=== PATIENT | male | born 1950 | race Caucasian/White ===

== ENCOUNTER 2016-10-14 07:19 | Day surgery (SDC) | payer OTHER ==
[~2016-10-14] VITALS: Ht 165.1 cm; Wt 62.0 kg
[2016-10-14 07:55] VITALS: BP 150/103; PULSE 72; RESP 18; TEMP 98.1; O2SAT 96
[2016-10-14] MEDS ORDERED: ASPI81TA5 PO (07:59)
[2016-10-14] MEDS ORDERED: VITA100036 PO (07:59)
[2016-10-14] MEDS ORDERED: LOSA25TA PO (07:59)
[2016-10-14] MEDS ORDERED: NS 1000P @30 MLS/HR (KVO) IV SCH (08:00)
[2016-10-14 08:13] LABS: AUTOMATED NEUTROPHIL # 5.7 TH/MM3 (1.8-7.7); BASOPHIL # 0.1 TH/MM3 (0-0.2); BASOPHIL % 0.6 % (0.0-2.0); EOSINOPHIL # 0.1 TH/MM3 (0-0.4); EOSINOPHIL % 1.5 % (0.0-4.0); HEMATOCRIT 47.1 % (39.0-51.0); HEMO FLAGS DIFF FINAL; LYMPH % 27.7 % (9.0-44.0); LYMPHOCYTE # 2.5 TH/MM3 (1.0-4.8); MEAN CELL VOLUME 92.8 FL (80.0-100.0); MEAN CORPUSCULAR HGB CONC 34.5 % (32.0-36.0); MONO % 7.2 % (0.0-8.0); PLATELET COUNT 347 TH/MM3 (150-450); RED BLOOD COUNT 5.08 MIL/MM3 (4.50-5.90); RED CELL DISTRIBUTION WIDTH 13.1 % (11.6-17.2)
[2016-10-14 08:25] LABS: APTT (PATIENT) 27.1 SEC (24.3-30.1); INTERNATIONAL NORMALIZED RATIO 0.9 RATIO; PROTHROMBIN TIME - PATIENT 10.4 SEC (9.8-11.6)
[2016-10-14 08:32] LABS: BICARBONATE 26.4 MEQ/L (21.0-32.0)
[2016-10-14] MEDS ORDERED: HEPARIN-NS/PF INJ 500 ML ONE (09:33)
[2016-10-14] MEDS ORDERED: IOHEXOL 350 MG/ML 100 ML BTL (for Cath Lab) OTHER ONE (09:33)
[2016-10-14] MEDS ORDERED: VERAPAMIL HCL 5 MG/2 ML VIAL ONE (09:38)
[2016-10-14] MEDS ORDERED: HEPARIN SODIUM - IV 10,000 UNITS/10 ML VIAL ONE (09:38)
[2016-10-14] MEDS ORDERED: MIDAZOLAM HCL 2 MG/2 ML VIAL ONE (09:38)
[2016-10-14] MEDS ORDERED: CLOPIDOGREL 300 MG TAB ONE (10:43)
--- NOTE | 2016-10-14 10:54 | CATHPROC ---
Urban[facility]do HIS Report Study Information Study Number Admission Scheduled Start Study Start [id number] Oct 14 2016 7:19AM 10/14/2016 Oct 14 2016 9:33AM [facility] Service Cardiac Catheterization Admit Source Facility Department Other [facility] - Executive Creative Director Physician and Clinical Staff Initial Mega Reza Brand Mgr Clif HERNANDEZ, Devan Other cathlab, cathlab Recorder Johnny Fu RCIS(BS) Scrub Collin Figueroa,RT(R) Procedures Performed Procedure Location (Site) Vessel Name Coronary Angiograms LCA Left Coronary Coronary Angiograms RCA Right Coronary Drug Eluting Inflatio RCA Mid Right Coronary L Heart Cath LV Gram-hand inj. LV LV Ventricle PTCA RCA Mid Right Coronary PTCA ADD ON'S Wire insertion Radial (right) Radial Art. Equipment Time Auto Garage Mechanic Description Size Mfg Part Number Used/Scraped WIRE, WHISPER W/HYDROCOAT [id number] 10:30 D[employer] 190CM Used 190CM *[id number] TRANSDUCER, TRUWAVE [id number] 09:34 SERRANO HARDEN * Used W/STOCKCOCK *[id number] 10:37 [employer] STENT, SYNERGY 2.5 X 20MM Used *[id number] TIG 4.0 GUIDE CATHETER [id number] 10:29 [employer] FR 6 Used CONVEY *[id number] *[id number] 09:34 [employer] PACK, CCL CUSTOM * Used *[id number] 09:34 [employer] SUPPORT, ARTERIAL ADULT [id number] Used [id number] 09:34 Sazze PACER PEN, SKIN DUAL W/ RULER * Used *[id number] 10:34 MEDTRONIC BALLOON, 2.5 X 15MM EUPHORA 15MM Used *[id number] 10:30 EverCloud 30 TAHMINA INDEFLATOR Used *[id number] BAND, RADIAL COMPRESSION TR [id number] 10:43 EverCloud 24CM Used SHORT 24 *[id number] 09:34 [employer]Cloud WIRE, EXCHANGE 260CM 3MMJ 260CM Used *[id number] 09:34 NAMIC MANIFOLD, 4 PORT * Used *[id number] 09:34 NAMIC TUBING, HIGH PRESSURE 20" 20" Used *[id number] 09:34 NYCOMED OMNIPAQUE, 350 MG, 150ML 150ML [id number] Used [id number] 09:34 [facility] BLANKET,WARM AIR CCL * Used *[id number] CATHETER, FR5 OPTITORQUE [id number] 09:50 [employer] FR 5 Used RADIAL TIG 4.0 *[id number] SHEATH, FR6 TRANSRADIAL 09:34 [employer] FR 6 RM*[id number] Used SLENDER 10CM Equipment Model, Serial, Lot Number and Expiration Data Description Model Number Serial Number Lot Number Expiration Date STENT, LOBITO [id number] 05-23-2017 History: Current Medications Medication Dosage/Unit Route Frequency Last Date/Time Taken ASA History: Allergies Allergy Reaction No Known Allergies History: Risk Factors Family History of Hypertension Dyslipidemia Previous AK Premature CAD Yes No Yes No Prior Valve Prior PCI Prior CABG Surgery No No No Cerebrovascular Peripheral Artery Chronic Lung On Dialysis Diabetes Disease Disease Disease No No No No No History: Symptoms/Diagnosis Selection Items Chest pain History: Stress Tests Stress or Imaging Studies Performed Yes Standard Exercise Stress Test No Stress Echo No Stress Test SPECT Stress Test SPECT Result Stress Test SPECT Ischemia Risk/Extent Yes Positive High Stress Test CMR No Cardiac CTA Coronary Calcium Score No No History: Other Disease Selection Items HTN History: Other Current Smoker Packs a Day Years Used Pack Years Yes 1 40 40 Labs Hgb (g/dl) Hct (%) WBC (l/cumm) Platelets (thousands) 12.00-18.00 37.00-55.00 4.80-10.80 140.00-450.00 16.3 47.1 9 347 Glucose (mg/dl) BUN (mg/dl) Creatinine (mg/dl) BUN:Creatinine (1:x) 60.00-110.00 8.00-20.00 0.10-9.00 10.00-20.00 97 12 0.8 15 Na (meq/l) K (meq/l) 138.00-146.00 3.80-5.10 135 4 INR (PTT:PT) 0.50-2.00 0.9 CPK-MB (ng/ML) 0.00-7.00 Not Drawn Medication Medication Total Dose (Bolus/Oral) Medication Total Dosage/Unit 1% XYLOCAINE 5 mL HEPARIN 1500 units NTG (IC) 100 mcg PLAVIX 600 mg RADIAL COCKTAIL 5 mL (Bolus) VERSED 2 mg Medications (Bolus/Oral) Medication Time Given Dosage/Unit Administered By Reason VERSED 10/14/2016 10:15:53 AM 2 mg Devan Menezes RN 2 mg VERSED given in lab by Devan Menezes RN in Left Antecubital via Peripheral IV. Ordered by Mega Wharton. 1% XYLOCAINE 10/14/2016 10:16:52 AM 5 mL Mega Wharton 5 mL 1% XYLOCAINE given in lab by Mega Wharton in Right Radial via Subcutaneous. Ntg 300mcg Verapamil 2.5mg Heparin RADIAL COCKTAIL 10/14/2016 10:20:35 AM 5 mL (Bolus) WhartonPrimoher 2500U 5 mL (Bolus) RADIAL COCKTAIL given in lab by Mega Wharton in Right Radial via Radial. Using [Solutio n Name]. Reason: Ntg 300mcg Verapamil 2.5mg Heparin 2500U. NTG (IC) 10/14/2016 10:24:32 AM 100 mcg Mega Wharton 100 mcg NTG (IC) given in lab by Mega Wharton via Intra-coronary. HEPARIN 10/14/2016 10:28:58 AM 1500 units Devan Menezes RN 1500 units HEPARIN given in lab by Devan Menezes RN in Left Antecubital via Peripheral IV. Ordered by Mega Wharton. PLAVIX 10/14/2016 10:49:11 AM 600 mg Devan Menezes RN 600 mg PLAVIX given in lab by Devan Menezes RN via Oral. Ordered by Mega Wharton. Medication (Drip) Medication Time Given Dosage/Unit Concentration/Unit Diluent (ml) Solutio n IV Solutions 10/14/2016 9:33:45 AM 0 mL (IV) 500 NaCl .9 Patient arrived on IV Solutions given by cathlab, cathmarcelo in Left Antecubital via Peripheral IV. Pump /Drip Flow = 20 ml/hr using NaCl .9. Ordered by Mega Wharton. Initial Case Assessment Cardiovascular HR Rhythm NIBP Chest Pain 69 sinus 174/92 0 Edema Present Skin color Skin None Normal Warm Dry Circulatory - Right Pulses Dorsalis Pedis Femoral Radial 2 2 2 Scale (0,1,2,3,4,d) Scale (0,1,2,3,4,d) Neurological State Oriented to time-place- Alert Moves all extremities person Respiration - General Respiration Rate SpO2 (%) (B/min) 16 98 Final Case Assessment Cardiovascular HR Rhythm NIBP Chest Pain 68 sinus 150/76 0 Edema Present Skin color Skin None Normal Warm Dry Circulatory - Right Pulses Dorsalis Pedis Femoral Radial 2 2 2 Scale (0,1,2,3,4,d) Scale (0,1,2,3,4,d) Neurological State Oriented to time-place- Alert Moves all extremities person Respiration - General Respiration Rate SpO2 (%) (B/min) 16 98 Chronological Log Time Study Chronological Log 9:33:33 Patient arrived via Bed. 9:33:34 Patient Name, D.O.B, / Armband Verified By R.N. 9:33:34 Consent signed by the physician and the patient and verified by the Executive Creative Director staff. 9:33:35 Pre-op and post- op instructions given; patient acknowledges understanding of instructions. 9:33:36 Verbal Stimulation=2 Physical Stimulation=2 Airway=2 Respiration=2 TOTAL=8. (0=absent, 1=deutsch ited, 2=present) 9:33:36 Presedation assessment performed by Executive Creative Director RN. 9:33:37 Allens test performed on the right radial and ulnar artery. Positive. 9:33:38 Patient has been NPO for More than 6Hrs. 9:33:40 Skin Breakdown- none per patient 9:33:41 Patient Warmer Placed on the Table. 9:33:42 April Prominences Protected 9:33:44 A # 20 IV was noted in the Antecubital (left). Grade = 0 Patient arrived on IV Solutions given by cathlab, cathlab in Left Antecubital via Peripheral IV . Pump/Drip Flow = 20 9:33:45 ml/hr using NaCl .9. Ordered by Mega Wharton. 9:33:46 History and physical on the chart or being dictated. Vitals capture started with the following parameters, Patient=Adult, Interval=5 min, Initial Pr rbbfsx=310 mmHg, 9:35:24 Deflation Rate=5 mmHg 9:35:58 HR=67 bpm, PVHW=173/95 mmhg, SpO2=98.0 %, Resp=19 B/min, Pain=0, Ana=10, Crump=2 9:41:01 HR=70 bpm, XWKY=884/92 mmhg, SpO2=97.0 %, Resp=16 B/min, Pain=0, Ana=10, Crump=2 Assessment: Initial Case, HR=69 BPM, Rhythm=sinus, NQAB=934/92 mmhg, Chest Pain=0, Edema=None, Color=Normal, Skin = Warm, Dry 9:41:23 Right Pulses: Deric Ped=2, Femoral=2, Radial=2 Neurological: State=Alert, Ox3, JAY Respiration: Resp=16 B/min, SpO2=98 % 9:41:30 Reference ECG taken 9:42:48 Right Radial and groin(s) prepped with 2% chlorhexidine, and with a 3 min. waiting time. 9:45:17 MD paged 9:45:56 Pressure channel 1 zeroed. 9:46:07 HR=68 bpm, IXMQ=401/82 mmhg, SpO2=98.0 %, Resp=18 B/min, Pain=0, Ana=10, Crump=2 9:50:59 HR=67 bpm, KYJS=810/92 mmhg, SpO2=96.0 %, Resp=18 B/min, Pain=0, Ana=10, Crump=2 9:56:01 HR=66 bpm, RYLC=383/78 mmhg, SpO2=95.0 %, Resp=15 B/min, Pain=0, Ana=10, Crump=2 10:01:41 HR=65 bpm, NIUG=369/94 mmhg, SpO2=97.0 %, Resp=18 B/min, Pain=0, Ana=10, Crump=2 10:05:59 HR=68 bpm, KZCT=271/93 mmhg, SpO2=97.0 %, Resp=14 B/min, Pain=0, Ana=10, Crump=2 10:11:04 HR=68 bpm, ZCOD=738/84 mmhg, SpO2=96.0 %, Resp=17 B/min, Pain=0, Ana=10, Crump=2 10:13:49 MD arrived. 10:14:30 Contrast Scanned 10:14:30 Immediate Presedation assesment performed by physician. 10:15:53 2 mg VERSED given in lab by Devan Menezes RN in Left Antecubital via Peripheral IV. Ordered by Mega Wharton. 10:16:03 HR=66 bpm, CVOU=460/90 mmhg, SpO2=97.0 %, Resp=16 B/min, Pain=0, Ana=10, Crump=2 Time Out. Correct patient, correct procedure,correct physician, ,power injector not loaded with contrast with surgical 10:16:22 team present. Time Out Concurred by MD, individual staff in procedure 10:16:40 Case Start 10:16:41 Verbal Stimulation=2 Physical Stimulation=2 Airway=2 Respiration=2 TOTAL=8. (0=absent, 1=li mited, 2=present) 10:16:52 5 mL 1% XYLOCAINE given in lab by Mega Wharton in Right Radial via Subcutaneous. 10:20:15 Access site was Right Radial Artery. A SHEATH, FR6 TRANSRADIAL SLENDER 10CM FR 6 was advanced into the Radial (right) using the Perc utaneous 10:20:23 technique. 5 mL (Bolus) RADIAL COCKTAIL given in lab by Mega Wharton in Right Radial via Radial. Using [S olution Name]. Reason: 10:20:35 Ntg 300mcg Verapamil 2.5mg Heparin 2500U. A CATHETER, FR5 OPTITORQUE RADIAL TIG 4.0 FR 5 was advanced over a wire. OMNIPAQUE, 350 MG, 150 ML 150ML 10:20:42 was used for injections. 10:21:06 HR=78 bpm, LFEM=709/75 mmhg, SpO2=93.0 %, Resp=13 B/min, Pain=0, Ana=10, Crump=2 10:22:22 The LCA was injected and visualized at various angles. OMNIPAQUE, 350 MG, 150ML 150ML used . Recorded Pressure: Ao, HR=79, Condition=Condition 1 10:23:38 (Aorta) Ao 121/70/93 10:24:32 100 mcg NTG (IC) given in lab by Mega Wharton via Intra-coronary. 10:25:59 HR=85 bpm, DMGI=196/78 mmhg, SpO2=92.0 %, Resp=16 B/min, Pain=0, Ana=10, Crump=2 10:26:46 The RCA was injected and visualized at various angles. OMNIPAQUE, 350 MG, 150ML 150ML used . After removing the current catheter a TIG 4.0 GUIDE CATHETER CONVEY FR 6 was advanced over a WI RE, EXCHANGE 10:28:40 260CM 3MMJ 260CM. 10:28:58 1500 units HEPARIN given in lab by Devan Menezes RN in Left Antecubital via Peripheral IV. O rdered by Mega Wharton. 10:30:01 contrast and 30 TAHMINA INDEFLATOR added. 10:31:02 HR=74 bpm, EZMJ=009/73 mmhg, SpO2=95.0 %, Resp=15 B/min, Pain=0, Ana=10, Crump=2 10:32:39 A WIRE, WHISPER W/HYDROCOAT 190CM 190CM was inserted via Radial (right). 10:33:01 Interventional wire has crossed the lesion A BALLOON, 2.5 X 15MM EUPHORA 15MM was inserted over WIRE, WHISPER W/HYDROCOAT 190CM 190CM via the 10:33:05 RCA Mid. A BALLOON, 2.5 X 15MM EUPHORA 15MM over a WIRE, WHISPER W/HYDROCOAT 190CM 190CM in the RCA Mid was 10:34:28 inflated using a 30 TAHMINA INDEFLATOR at 8 tahmina for 15 sec. A BALLOON, 2.5 X 15MM EUPHORA 15MM over a WIRE, WHISPER W/HYDROCOAT 190CM 190CM in the RCA Mid was 10:35:20 inflated using a 30 TAHMINA INDEFLATOR at 8 tahmina for 15 sec. 10:35:30 Balloon Removed. 10:36:03 HR=69 bpm, ENRE=317/84 mmhg, SpO2=95.0 %, Resp=17 B/min, Pain=0, Ana=10, Crump=2 A STENT, SYNERGY 2.5 X 20MM was advanced through a TIG 4.0 GUIDE CATHETER CONVEY FR 6 over a WI RE, 10:36:13 WHISPER W/HYDROCOAT 190CM 190CM. A STENT, SYNERGY 2.5 X 20MM was deployed using a 30 TAHMINA INDEFLATOR at 14 atmospheres for 15 sec onds in the 10:38:00 RCA Mid. 10:38:38 Activated Clotting Time Drawn 10:39:14 Delivery device removed 10:40:14 Wire removed After removing the current catheter a MPA-2 INFINITI CATHETER FR 6 was advanced over a WIRE, EX CHANGE 260CM 10:40:15 3MMJ 260CM. Recorded Pressure: LV, HR=68, Condition=Condition 1 10:41:04 (Left Ventricle) LV 148/8/16 10:41:04 HR=68 bpm, OVXW=518/76 mmhg, SpO2=96.0 %, Resp=17 B/min, Pain=0, Ana=10, Crump=2 10:41:15 The LV was manually injected with 10 cc's and visualized. OMNIPAQUE, 350 MG, 150ML 150ML us ed. Recorded Pressure: LV, Ao, HR=70, Condition=Condition 1 10:41:25 (Left Ventricle) LV 148/19/19, (Aorta) Ao 147/73/103 10:41:46 Catheter was removed 10:42:25 Case End Assessment: Final Case, HR=68 BPM, Rhythm=sinus, ROSQ=100/76 mmhg, Chest Pain=0, Edema=None, Color=Normal, Skin = Warm, Dry 10:42:31 Right Pulses: Deric Ped=2, Femoral=2, Radial=2 Neurological: State=Alert, Ox3, JAY Respiration: Resp=16 B/min, SpO2=98 % 10:42:55 Catheter(s) removed without difficulty Radial Compression Device Used. 13 mLs of air placed in BAND, RADIAL COMPRESSION TR SHORT 24 2 4CM. Affected 10:42:57 hand 95 % O2 saturation. 10:43:09 Sterile dressing applied to site 10:43:09 No case complications noted. 10:43:10 Cine recording checked. 10:43:11 Bedside Report will be given. 10:43:12 Implantable Device card placed in patient's chart. 10:43:14 Verbal Stimulation=2 Physical Stimulation=2 Airway=2 Respiration=2 TOTAL=8. (0=absent, 1=l imited, 2=present) 10:43:26 A Left Heart Cath was performed. 10:43:47 ACT (Normal Range 90-180) = 263 10:46:07 HR=66 bpm, ZBMQ=848/84 mmhg, SpO2=97.0 %, Resp=21 B/min, Pain=0, Ana=10, Crump=2 10:49:11 600 mg PLAVIX given in lab by Devan Menezes RN via Oral. Ordered by Mega Wharton. 10:50:19 Vitals capture stopped. 10:50:27 Patient moved to stretcher End Study - Contrast Media Used In Study Contrast Total Opened (mL) Total Used (mL) Total Wasted (mL) Omnipaque 80 80 0 End Study - Maximum Contrast Load Max Contrast Load (mL) 387.5 End Study - Radiation Exposure Fluoro Time (minutes) 4.3 End Study - Patient Disposition Complications Transferred To Interventional Outcome No Executive Creative Director Holding successful
[2016-10-14] MEDS ORDERED: SODIUM CHLOR 0.9% 1000 ML INJ 1,000 ML IV SCH (10:55)
[2016-10-14] MEDS ORDERED: SODIUM CHLORIDE 0.9% FLUSH 10 ML FLUSH IV FLUSH PRN (11:00)
[2016-10-14] MEDS ORDERED: MORPHINE SULFATE 4 MG/ML INJ IV PUSH PRN (11:00)
[2016-10-14] MEDS ORDERED: MISC INFORMATION XX ONE (11:00)
[2016-10-14] MEDS ORDERED: METOPROLOL TARTRATE 25 MG TAB PO SCH (12:00)
[2016-10-14] MEDS ORDERED: ASPIRIN 81 MG CHEW TAB PO SCH (12:00)
[2016-10-14] MEDS ORDERED: CLOPIDOGREL 75 MG TAB PO SCH (12:00)
--- NOTE | 2016-10-14 13:43 | EKG ---
Date Performed: 10/14/2016 Time Performed: 08:03:28 PTAGE: 66 years EKG: Sinus rhythm . Possible septal infarct - age undetermined Abnormal ECG NO PREVIOUS TRACING DOCTOR: Gerald Garcia Interpretating Date/Time 10/14/2016 13:40:49
--- NOTE | 2016-10-14 13:46 | MA ---
cc: LANCE DRAKE M.D. DATE: 10/14/2016 INDICATION This is a 66-year-old with history of chest pain and positive stress test for ischemia. PROCEDURE Left heart catheterization, angiogram, left ventriculogram, angioplasty and stent placement of the right coronary artery. PROCEDURE NOTE After obtaining informed consent, the patient in a fasting state was brought into the forestry laborer. The right radial area was sterilized and draped with sterile drapes. 1% Xylocaine was used to locally anesthetize the area. A 6-Polish sheath was used to access the right radial artery. A Goodwater catheter was used to intubate the left main and right coronary artery. Multipurpose catheter was used to perform the left ventriculogram and the pressure measurements. CORONARY ANGIOGRAM The left main coronary artery is a medium size vessel which bifurcates into the LAD and left circumflex coronary artery. The left main has no significant disease. The left anterior descending coronary artery has about 50% midsegment. The left circumflex coronary artery has mild diffuse disease. The first obtuse marginal has about 80-85%. There might also be bridging phenomenon. The right coronary artery is a medium size vessel that is dominant. The midsegment has about 85%. LEFT VENTRICULOGRAM The ejection fraction is estimated to be 60%. There is no pressure gradient across the aortic valve. The left ventricular end-diastolic pressure is 12. The aortic pressure is 130/70. ANGIOPLASTY AND STENT PLACEMENT OF THE RIGHT CORONARY ARTERY Heparin was given. The right coronary artery was successfully intubated using a Goodwater catheter guide, 6 Polish. A Whisper wire was used to cross the lesion and positioned distally. Balloon angioplasty with a 2.5 balloon followed by a stent 2.5 x 20 Synergy up to 14 atmospheres. Angiographic evaluation showed excellent deployment of the stent, excellent flow distally. The wires and balloon catheter were taken out. The sheath was taken out. applied. The patient tolerated the procedure well and was sent back to his room in stable condition. Plavix was given in the forestry laborer. POSTOPERATIVE DIAGNOSIS 1. Successful angioplasty with stent placement of the right coronary artery. 2. 80-85% of the midsegment of the first obtuse marginal artery, also may be bridging phenomenon. 3. 50% mid LAD. 4. Preserved systolic performance of the left ventricle. MD JUNO Marin/JT /10:55 AM /1:32 PM
--- NOTE | 2016-10-14 15:36 | EKG ---
Date Performed: 10/14/2016 Time Performed: 12:38:24 PTAGE: 66 years EKG: Sinus rhythm . Normal ECG NO SIGNIFICANT CHANGE FROM PRIOR ELECTROCARDIOGRAM. PREVIOUS TRACING : 10/14/2016 08.03 DOCTOR: Gerald Garcia Interpretating Date/Time 10/14/2016 15:35:29
[2016-10-14] MEDS ORDERED: ATORVASTATIN 10 MG TAB PO SCH (21:00)
== END 2016-10-14 18:20 | disposition home or self-care (01) ==
LOC: HDOC 07:19 → HDIC 07:21 → HDOC 18:20
PROVIDERS: ATTEND Internal Medicine Cardiovascular Disease
DX: I25.10 Atherosclerotic heart disease of native coronary artery without angina pectoris (principal)
CPT/HCPCS: 80048; 85002; 85025; 85610; 85730; 92928; 93005; 93458; C1725; C1769; C1874; C1887; C1893; J1644; J2250; J7030; Q9967

== ENCOUNTER → 2017-02-03 | Outpatient (CLI) | payer OTHER ==
[~2017-02-03] MED LIST: ASPI81TA5 PO; LOSA25TA PO; VITA100036 PO
--- NOTE | 2017-02-03 09:14 | RADRPT ---
EXAM DATE/TIME: 02/03/2017 09:07 [place] COMPARISON: No previous studies available for comparison. INDICATIONS : Cough and congestion for 3 days. MEDICAL HISTORY : Hypertension. SURGICAL HISTORY : Stent. ENCOUNTER: Initial ACUITY: 3 days PAIN SCORE: 0/10 LOCATION: Bilateral chest FINDINGS: PA and lateral views of the chest demonstrate the lungs to be symmetrically aerated without evidence of mass, infiltrate or effusion. The cardiomediastinal contours are unremarkable. Lower cervical fi xation hardware. Osseous structures are intact. CONCLUSION: 1. No acute cardiopulmonary disease. Anton Pappas MD on February 03, 2017 at 9:11 Board Certified Radiologist. This report was verified electronically.
--- NOTE | 2017-02-12 10:08 | GIPROC ---
[facility] [address] [place] [facility]. [facility] [place], [address] EGD PROCEDURE REPORT EXAM DATE: 02/12/2017 PATIENT NAME: Neil Chan MR #: [id number] BIRTHDATE: 1950 ATTENDING: Atilio Holt MD ORDER #: [id number] ORNAMENTAL IRON WORKER HELPER: Lucille Wiley and Sydney Cedeno STATUS: outpatient INDICATIONS: The patient is a 66 yr old male here for an EGD due to abdominal pain PROCEDURE PERFORMED: EGD w/ biopsy MEDICATIONS: None and Per Anesthesia. TOPICAL ANESTHETIC: CONSENT: The patient understands the risks and benefits of the procedure and understands that these risks include, but are not limited to: sedation, allergic reaction, infection, perforation and/or bleeding. Alternative means of evaluation and treatment include, among others: physical exam, x-rays, and/or surgical intervention. The patient elects to proceed with this endoscopic procedure. medical equipment was checked for proper function. Hand hygiene and appropriate measures for infection prevention was taken. After the risks, benefits and alternatives of the procedure were thoroughly explained, Informed consent was verified, confirmed and timeout was successfully executed by the treatment team. The patient was anesthetized with topical anesthesia and the EC-3490Li (Pedi C) endoscope was introduced through the mouth and advanced to the second portion of the duodenum. Retroflexed views revealed a hiatal hernia The gastroscope was then slowly withdrawn and removed. ESOPHAGUS: There was LA Class A esophagitis noted. A biopsy was performed using cold forceps. Sample sent for histology. STOMACH: There was moderate gastritis in the gastric antrum. A biopsy was performed using cold forceps. Sample sent for histology. DUODENUM: The duodenal mucosa appeared normal in the bulb and second portion of the duodenum. ADVERSE EVENTS: There were no complications. IMPRESSIONS: 1. There was LA Class A esophagitis noted 2. There was gastritis in the gastric antrum; biopsy was performed 3. Normal duodenal mucosa in the bulb and second portion of the duodenum 4. Retroflexed views revealed a hiatal hernia RECOMMENDATIONS: 1. Await biopsy results. Biopsy results will not be ready for 7-10 days. If you don't hear from us in two weeks, call our office for biopsy results. 2. Anti-reflux regimen 3. Continue PPI 4. Avoid NSAIDS PATIENT CONDITION: stable DISPOSITION: Inpatient REPEAT EXAM: Return 1 year EGD pending biopsy results Atilio Holt MD eSigned: Atilio Holt MD 02/12/2017 10:08 AM cc: PATIENT NAME: Neil Chan MR#: [id number]
--- NOTE | 2017-02-12 10:11 | GIPROC ---
[facility] [address] [facility]. [facility], [address] COLONOSCOPY PROCEDURE REPORT EXAM DATE: 02/12/2017 PATIENT NAME: Neil Chan MR #: [id number] BIRTHDATE: 1950 ENDOSCOPIST: Atilio Holt MD ORDER #: [id number] CRISIS INTERVENTION SPECIALIST: Sydney Cedeno and Lucille Wiley STATUS: outpatient INDICATIONS: The patient is a 66 yr old male here for a colonoscopy due to abdominal pain PROCEDURE PERFORMED: Colonoscopy, diagnostic MEDICATIONS: None and Per Anesthesia. PREP QUALITY: The [place] Bowel Prep Score was Right colon 2, Mid colon 3, and Left colon 3. Total = 8. PREP TYPE:GoLytely ESTIMATED BLOOD LOSS: None CONSENT: The patient understands the risks and benefits of the procedure and understands that these risks include, but are not limited to: sedation, allergic reaction, infection, perforation and/or bleeding. Alternative means of evaluation and treatment include, among others: physical exam, x-rays, and/or surgical intervention. The patient elects to proceed with this endoscopic procedure. medical equipment was checked for proper function. Hand hygiene and appropriate measures for infection prevention was taken. After the risks, benefits and alternatives of the procedure were thoroughly explained, Informed consent was verified, confirmed and timeout was successfully executed by the treatment team. A digital exam revealed external hemorrhoids The Pentax EC-[id number] endoscope was introduced through the anus and advanced to the terminal ileum which was intubated for a short distance. The instrument was then slowly withdrawn as the colon was fully examined. COLON FINDINGS: The colonic mucosa appeared normal throughout the entire examined colon. Retroflexed views revealed internal hemorrhoids and Retroflexed views revealed medium internal hemorrhoids The scope was then completely withdrawn from the patient and the procedure terminated. PROCEDURE WITHDRAWAL TIME:6minutes ADVERSE EVENTS: There were no complications. IMPRESSIONS: 1. The colonic mucosa appeared normal throughout the entire examined colon 2. Retroflexed views revealed internal hemorrhoids 3. Retroflexed views revealed medium internal hemorrhoids 4. Revealed external hemorrhoids RECOMMENDATIONS: 1. Benefiber 2 tsp daily 2. Continue surveillance 3. Yearly hemoccult 4. Follow-up: GI Clinic 2 week(s) RECALL: Return 5 years Colonoscopy Atilio Holt MD eSigned: Atilio Holt MD 02/12/2017 10:10 AM cc:
== END ==
LOC: HLAB 08:51
DX: R05 Cough (principal); R09.89 Other specified symptoms and signs involving the circulatory and respiratory systems
CPT/HCPCS: 71020